=== PATIENT | female | born 1990 ===

== ENCOUNTER 2019-05-18 15:23 | Inpatient (IN) | payer OTHER ==
[2019-05-18] MEDS ORDERED: LACTATED RINGERS 500 ML IV ONE (15:54)
[2019-05-18] MEDS ORDERED: LACTATED RINGERS 1,000 ML IV SCH ×2 (16:00→21:00)
[2019-05-18 16:55] LABS: Basophils % (Auto) 0.5 % (0.0-1.8); Eosinophils % (Auto) 0.4 % (0.0-4.3); Hematocrit 36.9 % (30.3-42.9); Hemoglobin 12.1 gm/dl (10.1-14.3); Lymphocytes # (Auto) 1.9 K/mm3 (1.2-5.4); Lymphocytes % (Auto) 21.3 % (13.4-35.0); Mean Corpuscular HGB Conc 33 % (30-34); Mean Corpuscular Volume 83 fl (79-97); Monocytes # (Auto) 0.5 K/mm3 (0.0-0.8); Monocytes % (Auto) 5.7 % (0.0-7.3); Platelet Count 232 K/mm3 (140-440); Red Blood Count 4.44 M/mm3 (3.65-5.03); Red Cell Distribution Width 13.7 % (13.2-15.2)
[2019-05-18] MEDS ORDERED: AMPICILLIN/NS 2 GM/100 ML 2 GM/100 ML BAG IV ONE (19:36)
--- NOTE | 2019-05-18 19:45 | History and Physical Report ---
History of Present Illness Date of examination: 05/18/19 Date of admission: 05/18/19 15:24 Chief complaint: Gross Rupture of Membranes History of present illness: 28yp at 36+1/7 weeks by LNMP 09/07/2018 with DILSHAD 06/14/2019 consistent with a first trimester ultrasound presents with gross rupture of membranes at 14:00 today( 05/18/19). 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 History: abnormal PAP smear Family/Genetic History: hypertension Social history: no significant social history - Obstetrical History Expected Date of Delivery: 06/14/19 Actual Gestation: 36 Week(s) 1 Day(s) : 4 Para: 1 Hx # Term Pregnancies: 1 Number of Pregnancies: 0 Spontaneous Abortions: 2 Induced : 0 Number of Living Children: 1 #1 year: Birthweight: 3.918 kg Method of Delivery: Gestational age at delivery: 40 Complications: none Medications and Allergies Allergies Allergy/AdvReac Type Severity Reaction Status Date / Time No Known Allergies Allergy Verified 10/01/15 22:56 Home Medications Medication Instructions Recorded Confirmed Last Taken Type Ibuprofen [Motrin 800 MG tab] 800 mg PO Q8HR PRN #30 tablet 10/03/15 Unknown Rx oxyCODONE /ACETAMINOPHEN [Percocet 2 tab PO Q6HR PRN #30 tablet 10/03/15 Unknown Rx 5/325] Active Meds: Active Medications Lactated Ringer's (Lactated Ringers) 1,000 mls @ 125 mls/hr IV DIRECT RASHAAD Last Admin: 05/18/19 17:57 Dose: 125 mls/hr Documented by: Ampicillin Sodium (Ampicillin/Ns 2 Gm/100 Ml) 2 gm in 100 mls @ 100 mls/hr IV ONCE ONE Stop: 05/18/19 20:35 Ampicillin Sodium (Ampicillin/Ns 1 Gm/50 Ml) 1 gm in 50 mls @ 100 mls/hr IV Q4HR ONE Stop: 05/19/19 00:29 Review of Systems All systems: negative Genitourinary: leakage of fluid, contractions (mild contractions, +ve movement) - Vital Signs Vital signs: Vital Signs Pulse BP 85 123/79 05/18/19 15:52 05/18/19 15:52 Temp Pulse Resp BP Pulse Ox 98.3 F 93 H 18 122/80 05/18/19 17:59 05/18/19 19:26 05/18/19 17:59 05/18/19 19:26 - Physical Exam Breasts: Positive: deferred Cardiovascular: Regular rate Lungs: Positive: Clear to auscultation Abdomen: Positive: soft, normal bowel sounds Genitourinary (Female): Positive: normal external genitalia Vulva: both: normal - Obstetrical FHR: category 1 Uterine Contraction Monitor Mode: External Cervical Dilatation: 0 Cervical Effacement Percentage: 50 station: -3 Uterine Contraction Frequency (min): Q3-5 Uterine Contraction Duration: <1 minute Uterine Contraction Pattern: Irregular Uterine Tone Measurement Phase: Contraction Uterine Contraction Intensity: Mild Results Result Diagrams: 05/18/19 16:30 Abnormal lab results 05/18/19 Range/Units 16:30 MCH 27 L (28-32) pg Seg Neutrophils % 72.1 H (40.0-70.0) % All other labs normal. Assessment and Plan PPROM @36+1/7 weeks Previous section declines - Patient Problems (1) Previous delivery affecting Current Visit: Yes Status: Acute Plan to address problem: Consents obtained Plan to proceed to delivery. Nursing staff notified.
[2019-05-18] MEDS ORDERED: FAMOTIDINE 20 MG/2 ML INJ IV ONE (20:10)
[2019-05-18] MEDS ORDERED: BICITRA ORAL LIQD 30ML PO ONE (20:10)
[2019-05-18] MEDS ORDERED: METOCLOPRAMIDE 10 MG/2 ML INJ IV ONE (20:10)
--- NOTE | 2019-05-18 20:46 | Anesthesia Consultation ---
Anesthesia Consult and Med Hx Date of service: 05/18/19 - Airway Anesthetic Teeth Evaluation: Good ROM Head & Neck: Adequate Mental/Hyoid Distance: Adequate Mallampati Class: Class II Intubation Access Assessment: Probably Good - Pulmonary Exam CTA: Yes - Cardiac Exam Cardiac Exam: RRR - Pre-Operative Health Status Proposed Anesthetic Plan: Spinal Nerve Block: TAP - Pulmonary Hx Asthma: No COPD: No Hx Pneumonia: No - Cardiovascular System Hx Hypertension: No - Central Nervous System Hx Seizures: No Hx Psychiatric Problems: No - Endocrine Hx Renal Disease: No Hx End Stage Renal Disease: No Hx Hypothyroidism: No Hx Hyperthyroidism: No - Hematic Hx Anemia: No Hx Sickle Cell Disease: No - Other Systems Hx Alcohol Use: No
--- NOTE | 2019-05-18 20:47 | Anesthesia Day of Surgery ---
Anesthesia Day of Surgery - Day of Surgery Patient Examined: Yes Patient H&P Reviewed: Yes Patient is NPO: Yes
[2019-05-18] MEDS ORDERED: OXYTOCIN 20 UNIT/1000ML DRIP 20 UNITS/1,000 ML BAG IV SCH ×2 (21:00→23:00)
[2019-05-18] MEDS ORDERED: OXYTOCIN 10 UNIT/1 ML INJ ONE (21:12)
[2019-05-18] MEDS ORDERED: BUPIVACAINE/PF (0.5%) 5 MG/1 ML 30 ML VIAL INFILTRATI ONE (21:12)
[2019-05-18] MEDS ORDERED: ONDANSETRON 4 MG/2 ML INJ ONE (21:12)
[2019-05-18] MEDS ORDERED: DEXMEDETOMIDINE 200 MCG/2 ML VIAL IV ONE (21:12)
[2019-05-18] MEDS ORDERED: PHENYLEPHRINE/NS 1,000 MCG/10 ML SYRINGE (OR USE) IV ONE ×2 (21:12→21:48)
[2019-05-18] MEDS ORDERED: KETOROLAC 30 MG/1 ML INJ ONE (22:04)
--- NOTE | 2019-05-18 22:08 | Procedure Note ---
OB Delivery Note - Delivery Date of Delivery: 05/18/19 Surgeon: TRIPP BATISTA Estimated blood loss: 500cc - Section Preop diagnosis: repeat , other ( Rupture of Membranes) Postop diagnosis: same section procedure: section, repeat low transverse Disposition: PACU Complications: none Narrative: Preoperative diagnosis: IUP at 36+1/7 weeks, previous sectionx1, Rupture of Membranes Postoperative diagnosis: same Procedure: Elective Repeat Low Transverse section via Pfannenstiel incision Surgeon: Dr Tripp Batista Assist: Scrub Anesthesia: Spinal Findings: viable male, weight 2702gmsgms and 8/9 Normal Uterus, tubes and ovaries. Complications: none EBL: 500mL IV Fluids: 600ml Urine Output:200ml Procedure: Patient gave informed consent in OB triage. All questions and concerns addressed. R/B/C reviewed. She was taken to the OR where she received excellent spinal anesthesia. She was placed in the dorsal supine position with a leftward tilt. She was prepped and draped in a sterile fashion. A time out was verified. A pfannenstiel skin incision was made, taken down through the underlying fascia sharply and extended laterally with curved Hare scissors. The superior and inferior aspect of the fascial incision was grasped with Andrew clamps and the rectus muscles dissected off sharply. The abdomen was entered sharply in the midline and extended laterally and inferiorly sharply with good visualization of the underlying structures.A bladder blade was inserted. The uterine incision was made sharply with a scalpel, taken down to the amnion and extended inferiorly and superiorly bluntly. The bladder blade removed and the baby delivered atraumatically. No nuchal cord, spontaneous cry at delivery. Cord clamped and cut and baby handed to waiting factorer staff. An intact placenta with three vessel cord delivered manually. The uterus cleared of all clots and debris. The uterus was exteriorized. The uterine incision closed with 2 layers of 0-vicryl with excellent hemostasis. The abdomen was irrigated with warm normal saline and the uterus placed back into the abdomen. A second look at the uterine incision assured hemostasis. The peritoneum was closed with 3-0 Vicryl, the fascia closed with 0-Vicryl in the usual fashion and the subcuticular structures closed with 0-Vicryl. The skin closed with monocryl and a pressure dressing applied. All sponge and needle counts correctx2. Mom and baby stable to . EBL 500ml. Donna AUGUST - A at 1 minute: 8 at 5 minutes: 9 Gender: Male
[2019-05-18] MEDS ORDERED: HYDROcodone/ACETAMINOPHEN 5-325 MG TAB PO PRN (22:23)
[2019-05-18] MEDS ORDERED: PROMETHAZINE 25 MG RECT SUPP PR PRN (22:23)
[2019-05-18] MEDS ORDERED: MAGNESIUM HYDROXIDE (MOM) ORAL LIQD UDC PO PRN (22:23)
[2019-05-18] MEDS ORDERED: SIMETHICONE 80 MG CHEW TAB PO PRN (22:23)
[2019-05-18] MEDS ORDERED: ACETAMINOPHEN 650 MG RECT SUPP PR PRN (22:23)
[2019-05-18] MEDS ORDERED: HYDROCORTISONE 25 MG RECTAL SUPP PR PRN (22:23)
[2019-05-18] MEDS ORDERED: NALOXONE 0.4 MG/1 ML INJ IV PRN (22:23)
[2019-05-18] MEDS ORDERED: WITCH HAZEL/ GLYCERIN PAD TP PRN (22:23)
[2019-05-18] MEDS ORDERED: SENNOSIDES 8.6 MG TAB PO PRN (22:23)
[2019-05-18] MEDS ORDERED: LANOLIN/ZINC/DIMETHICONE (LANSINOH) 7 GM TP PRN (22:23)
[2019-05-18] MEDS ORDERED: MORPHINE 2 MG/1 ML INJ IV PRN (22:23)
[2019-05-18] MEDS ORDERED: KETOROLAC 30 MG/1 ML INJ IV PRN (22:23)
[2019-05-18] MEDS ORDERED: ONDANSETRON 4 MG/2 ML INJ IV PRN (22:23)
[2019-05-18] MEDS ORDERED: MORPHINE 4 MG/1 ML INJ IV PRN (22:23)
--- NOTE | 2019-05-18 22:25 | Post Anesthesia Evaluation ---
- Post Anesthesia Evaluation Patient Participated: Yes Airway Patent: Yes Stable Respiratory Function: Yes Nausea/Vomiting: No Temp > 96.8F: Yes Pain Manageable: Yes Adequeate Hydration: Yes Anesthesia Complications: No Block Receding Appropriately: Yes
[2019-05-19] MEDS ORDERED: AMPICILLIN/NS 1 GM/50 ML 1 GM/50 ML BAG IV ONE
[2019-05-19] MEDS: D5W/LACTATED RINGERS 1,000 ML IV SCH ×2 (02:56→11:36)
[2019-05-19] MEDS: KETOROLAC 30 MG/1 ML INJ IV PRN ×2 (05:34→11:35)
[2019-05-19] MEDS: oxyCODONE /ACETAMINOPHEN 5-325MG TAB PO PRN ×3 (08:38→20:52)
[2019-05-19 10:55] LABS: Hematocrit 33.4 % (30.3-42.9); Hemoglobin 10.8 gm/dl (10.1-14.3)
--- NOTE | 2019-05-19 13:08 | Progress Note ---
Assessment and Plan A: POD#1 s/p Repeat c/s Pain well controlled VSS Stable P: Routine PP/PO orders Encouraged ambulation Anticipate discharge home in 24-48 hrs Subjective - Subjective Date of service: 05/19/19 Principal diagnosis: POD#1 s/p Repeat c/s Interval history: See H&P and operative note Patient reports: appetite normal, voiding normally, pain well controlled, flatus, ambulating normally, no bowel movement [place]: doing well, other (both) Objective - Vital Signs Latest vital signs: Vital Signs Temp Pulse Resp BP BP Pulse Ox 05/19/19 08:07 98.3 F 78 18 99/62 97 05/19/19 04:49 98.6 F 81 18 100/68 96 05/19/19 00:20 97.8 F 79 18 96/59 99 05/19/19 00:16 97.8 F 18 05/19/19 00:10 71 97 05/19/19 00:05 77 97 05/19/19 00:04 78 93 05/19/19 00:00 84 95 05/18/19 23:56 85 120/64 05/18/19 23:55 70 97 05/18/19 23:50 70 96 05/18/19 23:45 76 97 05/18/19 23:40 68 96 05/18/19 23:35 78 96 05/18/19 23:30 67 97 05/18/19 23:26 67 118/70 05/18/19 23:25 80 97 05/18/19 23:20 70 13 91/53 97 05/18/19 23:05 66 15 87/53 96 05/18/19 22:50 65 18 89/50 99 05/18/19 22:35 64 16 89/52 99 05/18/19 22:30 64 16 91/52 98 05/18/19 22:25 68 15 90/51 98 05/18/19 22:21 67 15 90/50 98 05/18/19 22:19 97.9 F 64 14 91/53 97 05/18/19 19:28 98.8 F 05/18/19 19:26 93 H 122/80 05/18/19 17:59 98.3 F 88 18 114/74 114/74 05/18/19 15:52 85 123/79 Intake and Output 05/18/19 05/19/19 05/19/19 23:59 07:59 15:59 Intake Total 600 1000 Output Total 400 200 Balance 200 -200 1000 Intake: IV 600 1000 D5lr 1,000 ml @ 125 mls/ 1000 hr IV DIRECT RASHAAD Rx#: [id number] Output: Urine 400 200 Indwelling Catheter 200 Uretheral (Mccall) 200 Other: Total, Output Amount 100 Voiding Method Toilet Estimated Blood Loss 500 - Exam Breasts: Present: normal, Cardiovascular: Present: Regular rate, Normal S1, Normal S2, No murmurs Lungs: Present: Clear to auscultation, Normal air movement Abdomen: Present: normal appearance, soft, tenderness (as expected post-op), normal bowel sounds. Absent: distention Vulva: both: normal Uterus: Present: firm, fundal height at umbilicus Extremities: Present: normal Deep Tendon Reflex Grade: Normal +2 Incision: Present: normal, dry, intact, dressed (Pressure dressing CDI) - Labs Labs: Abnormal lab results 05/18/19 Range/Units 16:30 MCH 27 L (28-32) pg Seg Neutrophils % 72.1 H (40.0-70.0) %
[2019-05-19] MEDS: IBUPROFEN 800 MG TAB PO PRN (18:44)
[2019-05-20] MEDS: IBUPROFEN 800 MG TAB PO PRN ×4 (00:02→17:30)
--- NOTE | 2019-05-20 09:53 | Progress Note ---
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 Patient reports: appetite normal, voiding normally, pain well controlled, flatus, ambulating normally, no dizzy ambulation, no bowel movement [place]: doing well, bottle feeding Objective - Vital Signs Latest vital signs: Vital Signs Temp Pulse Resp BP Pulse Ox 05/20/19 08:44 97.6 F 78 18 101/64 98 05/20/19 06:38 18 05/20/19 06:02 18 05/20/19 01:02 18 05/20/19 00:02 18 05/19/19 23:33 97.7 F 76 18 103/62 97 05/19/19 21:52 18 05/19/19 20:52 18 05/19/19 19:44 18 05/19/19 17:21 98.9 F 18 102/64 05/19/19 17:04 97 05/19/19 12:21 99.1 F 79 18 96/64 97 Intake and Output 05/19/19 05/20/19 05/20/19 23:59 07:59 15:59 Intake Total 1080 120 Output Total 1000 Balance 80 120 Intake: Oral 480 Intake, Free Water 600 120 Output: Urine 1000 Void 1000 Other: Total, Intake Amount 120 Total, Output Amount 500 # Voids Void 1 1 - Exam Cardiovascular: Present: Regular rate Lungs: Present: Clear to auscultation, Normal air movement Abdomen: Present: normal appearance, soft Vulva: both: normal Uterus: Present: normal, firm, fundal height below umbilicus Extremities: Present: normal Incision: Present: normal, dry, intact, other (simran in place) Comments: scant lochia
--- NOTE | 2019-05-20 09:57 | Discharge Summary ---
Providers - Providers Date of Admission: 05/18/19 15:24 Date of discharge: 05/21/19 Attending physician: SABINE WALLACE MD Primary care physician: SABINE WALLACE MD Hospitalization Reason for admission: IUP - , labor, rupture of membranes Delivery: Procedure: repeat low transverse Episiotomy: none Laceration: none Incision: normal, dry, intact, other (simran in place) Other procedures: none complications: none Discharge diagnosis: delivery [place] baby: male Hospital course: Uncomplicated Condition at discharge: Stable Disposition: DC-01 TO HOME OR SELFCARE - Discharge Diagnoses (1) S/P repeat low transverse Status: Acute Plan - Discharge Medications Prescriptions: Ibuprofen [Motrin 800 MG tab] 800 mg PO Q6H PRN #30 tablet PRN Reason: Pain, Mild (1-3) - Provider Discharge Summary Activity: routine, no sex for 6 weeks, no heavy lifting 4 weeks, no strenuous e xercise Diet: routine Instructions: routine Additional instructions: [] Smoking cessation referral if applicable(refer to patient education folder for contact #) [] Refer to [facility]'s [facility] Booklet Call your doctor immediately for: * Fever > 100.5 * Heavy vaginal bleeding ( >1 pad per hour) * Severe persistent headache * Shortness of breath * Reddened, hot, painful area to leg or breast * Drainage or odor from incision. * Keep incision clean and dry at all times and follow doctor's instructions regarding bathing/showering - Follow up plan Follow up: SABINE WALLACE MD [Primary Care Provider] - 7 Days (Follow up at [facility] as needed or in 1 week for incision check and simran removal)
[2019-05-20] MEDS: BACITRACIN/POLYMYXIN B OINT 28.35 GM TP SCH ×2 (10:52→22:00)
[2019-05-20] MEDS: oxyCODONE /ACETAMINOPHEN 5-325MG TAB PO PRN (21:13)
[2019-05-21] MEDS: IBUPROFEN 800 MG TAB PO PRN ×3 (02:16→14:35)
[2019-05-21 09:29] VITALS: BP 100/69
--- NOTE | 2019-05-21 12:41 | Progress Note ---
Assessment and Plan SP c/section POD#2 P: continue current management Rx on chart, d/c home with appropriate follow up postoperative instructions reviewed Donna AUGUST - Patient Problems (1) Previous delivery affecting Current Visit: Yes Status: Acute Subjective - Subjective Date of service: 05/21/19 Principal diagnosis: POD#2; s/p Repeat LTCS Interval history: 28yp at 36+1/7 weeks by LNMP 09/07/2018 with DILSHAD 06/14/2019 consistent with a first trimester ultrasound presents with gross rupture of membranes at 14:00 today( 05/18/19). Patient reports: no new complaints, no loss of fluid, no vaginal bleeding, no contractions (patient doing well, ambulator, tolerating PO, afebrile) Objective - Vital Signs Vital Signs: Vital Signs - 12hr 05/21/19 05/21/19 05/21/19 02:16 03:16 09:05 Temperature 98.7 F Pulse Rate 80 Respiratory 18 18 18 Rate Blood Pressure 100/69 [Right] - Exam Breasts: normal Cardiovascular: Regular rate Lungs: Clear to auscultation Abdomen: Present: normal appearance (incision c/d/i), soft, normal bowel sounds Uterus: Present: firm, fundal height below umbilicus Extremities: normal Deep Tendon Reflex Grade: Normal +2 - Labs Labs: Abnormal Labs 05/18/19 16:30 MCH 27 L Seg Neutrophils % 72.1 H
== END 2019-05-21 17:30 | disposition home or self-care (01) | DRG 786 ==
LOC: TRG 15:23 → LD 15:24 → OB 05-19 00:05
PROVIDERS: ADMIT Obstetrics & Gynecology; ATTEND Obstetrics & Gynecology
PROC: 10D00Z1 Extraction of Products of Conception, Low, Open Approach (ICD-10-PCS; principal; 2019-05-18)
DX: O34.211 Maternal care for low transverse scar from previous cesarean delivery (principal); O60.14X0 Preterm labor third trimester with preterm delivery third trimester, not applicable or unspecified; O42.913 Preterm premature rupture of membranes, unspecified as to length of time between rupture and onset of labor, third trimester; Z3A.36 36 weeks gestation of pregnancy; Z37.0 Single live birth; Z82.49 Family history of ischemic heart disease and other diseases of the circulatory system
CPT/HCPCS: 36415; 85014; 85018; 85025; 86592; 86850; 86900; 86901; G0378; A6250; J0290; J1885; J2370; J2405; J2590; J2765; J3490; J7120; J7121